=== PATIENT | male | born 1955 | race Caucasian/White ===

== ENCOUNTER 2019-03-25 05:58 | Day surgery (SDC) | payer MEDICARE, OTHER ==
[2019-03-25] MEDS ORDERED: Dextrose 5%-Lactated Ringers 1,000 ML IV SCH (07:00)
[2019-03-25] MEDS ORDERED: Glycopyrrolate 0.2 MG/ML 2 ML SDV IVPUSH ONE (07:00)
[2019-03-25] MEDS ORDERED: Propofol 200 MG/20 ML SDV ONE (07:26)
[2019-03-25] MEDS ORDERED: Midazolam 1 MG/ML 2 ML SDV ONE (07:26)
[2019-03-25] MEDS ORDERED: fentaNYL 100 MCG/2 ML SDV ONE (07:26)
[2019-03-25 09:15] VITALS: BP 135/82; PULSE 61
--- NOTE | 2019-03-29 00:08 | OR ---
DATE OF PROCEDURE: 03/25/2019 SURGEON: Stew Flores MD PREOPERATIVE DIAGNOSIS: Probable gastroesophageal reflux disease. POSTOPERATIVE DIAGNOSES: 1. Active gastroesophageal reflux disease associated with moderate-sized hiatal hernia. 2. Mild antral gastritis/duodenitis. PROCEDURES: Esophagogastroduodenoscopy with; 1. Biopsy of esophagogastric junction. 2. Biopsy of antrum for CLOtest. ANESTHESIA: IV sedation. INDICATION FOR PROCEDURE: A 63-year-old male presenting with progressively worsening gastroesophageal reflux disease. He has been on twice-a-day omeprazole. Continues to have worsening heartburn along with some regurgitation of bilious-type material and cough associated with that. Given these findings, the patient referred for upper endoscopy for diagnostic purposes. Potential risks including bleeding and perforation were discussed, and the patient wishes to proceed. DETAILS OF PROCEDURE: The patient was taken to the operating room and placed in a left lateral decubitus position. IV sedation was administered, after which the upper GI endoscope was passed orally through the length of the esophagus into the stomach with retroflexion view of the fundus, and thereafter through the pyloric channel and into the junction of the third and fourth portions of the duodenum. Findings included some mild redness and edema of the hypopharynx and larynx consistent with some ongoing reflux and regurgitation. The pyloric channel and proximal 2/3 of the esophagus were otherwise unremarkable. As one passed into the more distal esophagus, the patient noted to have 2 to 3 cm hiatal hernia with quite active-appearing gastroesophageal reflux disease. There was some upward extension of the gastroesophageal junction mucosal line with the columnar mucosa above the upper gastric folds suggestive of possible Page's esophagus. The mucosa in general in the EG junction was edematous and friable. There was no plaquing or stricturing or otherwise suggestive of neoplastic changes per se. Within the stomach, there were some patchy reddened areas in the antrum. These continued into the duodenal bulb, beyond which the duodenum normalized. Biopsies were then obtained from the antrum and sent for CLOtest for H pylori. Multiple biopsies were then obtained from the gastroesophageal junction, sent for histologic evaluation. Minimal bleeding from the biopsy sites was seen and the procedure then concluded. Discussion which begun preoperatively with the patient and family members continued postoperatively after the patient was awakened and conversant, and after discussion, they wished to proceed with a Mihir fundoplication. This will be scheduled for the week of 04/06. The patient does have 2 family members who have had the surgical antireflux procedure by myself with good results. Potential risks of the procedure were all reviewed with the patient and , and they wished to proceed with this. Stew Flores MD /[id number]
== END 2019-03-25 09:35 | disposition home or self-care (01) ==
LOC: JP.SDS 05:58
PROVIDERS: ATTEND Surgery
DX: K21.0 Gastro-esophageal reflux disease with esophagitis (principal); K44.9 Diaphragmatic hernia without obstruction or gangrene; K29.70 Gastritis, unspecified, without bleeding; K29.80 Duodenitis without bleeding; K22.8 Other specified diseases of esophagus; Z79.899 Other long term (current) drug therapy
CPT/HCPCS: 43239; 87081; J2250; J2704; J3010; J3490; J7042

== ENCOUNTER 2019-04-06 12:08 | Inpatient (IN) | payer MEDICARE, OTHER ==
[~2019-04-06 12:08] MED LIST: Dexamethasone 4 MG/ML SDV ONE; Glycopyrrolate 0.2 MG/ML 5 ML MDV ONE; Neostigmine Methylsulfate 1 MG/ML 5 ML Syringe ONE; Ondansetron 4 MG/2 ML SDV ONE; Propofol 200 MG/20 ML SDV ONE; Rocuronium 50 MG/5 ML Vial ONE; Succinylcholine 200 MG/10 ML MDV ONE; Sugammadex Sodium 200 MG/2 ML VIAL ONE; fentaNYL 250 MCG/5 ML SDV ONE
[2019-04-06] MEDS ORDERED: Ketamine 500 MG/5 ML MDV IV SCH (12:15)
[2019-04-06] MEDS ORDERED: Ketamine 50 MG in Sodium Chloride 0.9% 49.5 ML IV SCH (12:30)
[2019-04-06] MEDS ORDERED: Acetaminophen 500 MG Tab PO ONE (12:45)
[2019-04-06] MEDS ORDERED: Dextrose 5%-Lactated Ringers 1,000 ML IV SCH (13:30)
[2019-04-06] MEDS ORDERED: ceFAZolin 2 GM in Premix Bag 1 BAG IV ONE (14:00)
[2019-04-06] MEDS ORDERED: fentaNYL 250 MCG/5 ML SDV ONE (15:08)
[2019-04-06] MEDS ORDERED: Lactated Ringers 1,000 ML ONE (15:54)
[2019-04-06] MEDS ORDERED: Sugammadex Sodium 200 MG/2 ML VIAL ONE (16:34)
[2019-04-06] MEDS ORDERED: hydrOXYzine HCl 100 MG/2 ML SDV IM ONE (16:42)
[2019-04-06] MEDS ORDERED: fentaNYL 100 MCG/2 ML SDV IVPUSH ONE (16:43)
[2019-04-06] MEDS ORDERED: HYDROmorphone 0.5 MG/0.5 ML Syringe IVPUSH PRN (18:31)
[2019-04-06] MEDS ORDERED: HYDROmorphone 1 MG/ML Syringe IV PRN (18:32)
[2019-04-06] MEDS ORDERED: Ondansetron 4 MG/2 ML SDV IVPUSH PRN (18:36)
[2019-04-06] MEDS ORDERED: methylPREDNISolone Sodium Succinate 40 MG/1 ML SDV IVPUSH SCH (20:00)
[2019-04-06] MEDS: Dextrose 5%-Lactated Ringers 1,000 ML IV SCH (20:36)
[2019-04-06] MEDS: Metoclopramide 10 MG/2 ML SDV IVPUSH SCH (20:37)
[2019-04-06] MEDS: Pantoprazole 40 MG Vial IV SCH (20:38)
[2019-04-06] MEDS ORDERED: ceFAZolin 1 GM Vial ONE (21:37)
[2019-04-06] MEDS ORDERED: Sodium Chloride 0.9% 50 ML ONE (21:37)
[2019-04-06] MEDS: ceFAZolin 2 GM in Premix Bag 1 BAG IV SCH (22:32)
[2019-04-07] MEDS: Dextrose 5%-Lactated Ringers 1,000 ML IV SCH ×3 (00:39→21:44)
[2019-04-07] MEDS: Metoclopramide 10 MG/2 ML SDV IVPUSH SCH ×4 (01:53→20:48)
[2019-04-07] MEDS ORDERED: ceFAZolin 1 GM Vial ONE (05:21)
[2019-04-07] MEDS ORDERED: Sodium Chloride 0.9% 50 ML ONE (05:21)
[2019-04-07] MEDS: ceFAZolin 2 GM in Premix Bag 1 BAG IV SCH (05:46)
[2019-04-07] MEDS ORDERED: HYDROmorphone 2 MG Tab PO PRN (06:56)
[2019-04-07] MEDS ORDERED: Ondansetron 4 MG Tab.DIS PO PRN (06:56)
[2019-04-07] MEDS ORDERED: methylPREDNISolone Sodium Succinate 125 MG/2 ML SDV IVPUSH SCH (07:14)
[2019-04-07] MEDS ORDERED: ceFAZolin 2 GM in Sodium Chloride 0.9% 50 ML IV SCH ×2 (09:04→14:00)
[2019-04-07] MEDS: Aspirin 81 MG Tab.EC PO SCH (09:23)
[2019-04-07] MEDS: methylPREDNISolone Sodium Succinate 125 MG/2 ML SDV IVPUSH SCH ×2 (09:23→20:49)
--- NOTE | 2019-04-07 09:46 | PN ---
DATE OF SERVICE: 04/07/2019 SUBJECTIVE: Ricardo is postoperative day #1. He is alert and orientated. He states his pain is controlled. He has been up ambulating. Has no questions or concerns. OBJECTIVE: GENERAL: Ricardo is a 63-year-old male. He is alert and orientated. VITAL SIGNS: TPR; 96.7, 83, 18. Blood pressure 108/72. HEENT: Negative. NECK: Supple. HEART: Regular rate and rhythm. LUNGS: Clear. ABDOMEN: Dressing is dry and intact. Abdominal binder is on. EXTREMITIES: Without peripheral edema. ASSESSMENT: Laparoscopic Mihir fundoplication. PLAN: 1. Full liquid diet. 2. Dietary consult. 3. Decrease IV to 100 mL/hour. 4. Dilaudid 2 mg q.4 hours p.r.n. pain. 5. Discontinue IV Dilaudid. 6. Zofran ODT 4 mg every 4 hours p.r.n. nausea. 7. Dressing off, may shower. 8. We will evaluate p.r.n. or in a.m. Terri Bermudez PA-C /[id number]
--- NOTE | 2019-04-07 15:02 | OR ---
DATE OF PROCEDURE: 04/06/2019 SURGEON: Stew Flores MD PREOPERATIVE DIAGNOSIS: Gastroesophageal reflux disease, refractory to medical management. POSTOPERATIVE DIAGNOSIS: 1. Large paraesophageal diaphragmatic hernia associated with gastroesophageal reflux disease refractory to medical management. 2. Mediastinal lipoma. OPERATIVE PROCEDURES: Diagnostic laparoscopy with: 1. Repair of paraesophageal diaphragmatic hernia with mesh augmentation and associated Mihir fundoplication (89491). 2. Excision of mediastinal lipoma (47815). ANESTHESIA: General. INDICATION FOR PROCEDURE: This is a 63-year-old male presenting with progressively worsening gastroesophageal reflux disease, which at this point has become refractory to medical management. Upper endoscopy was performed a little over a week ago and was found to have a fairly large hiatal hernia and on microscopic examination was consistent with reflux without Page's esophagus. Plan is to proceed with a Mihir fundoplication. Potential risks of procedure including bleeding, infection, injury to the viscera in the area, problems with fundoplication such as dysphagia, gas-bloat syndrome, disorders of gastric emptying rate, as well as possibility of cardiopulmonary, septic, or hemorrhagic complications leading to were discussed, and lastly either short-term or long-term ineffectiveness of procedure involving persistent or recurrent reflux were likewise gone over, and the patient wishes to proceed. DETAILS OF PROCEDURE: The patient was taken to the operating room, and placed in a supine position. After general endotracheal anesthesia was induced, he was converted to a lithotomy position and the abdomen prepped and draped. At 15 cm inferior and 5 cm left of xiphoid process, a transverse incision was made and peritoneal cavity entered under direct vision with an Optiview trocar, inflated to 15 mmHg pressure with CO2. Laparoscope was then reinserted, no underlying trocar insertion site injuries were seen. Following this, bilateral subcostal transverse abdominis plane blocks were placed and 4 additional trocars were placed across the upper and mid abdomen. Upon evaluation of the liver, the patient was noted to have a fairly large hiatal hernia. This had a major paraesophageal component to it with prolapse of some omentum and perigastric fat, along with some of the gastric fundus in a plane anterior to the course of the esophagus. The hernia was then reduced, and the peritoneum overlying it was incised and reflected downward. The esophagus itself was quite thickened related to chronic inflammation. It eventually was dissected free from the left and right crura and the retroesophageal dissection then completed as well. Further dissection resulted in a very nice intra-abdominal esophageal length of around 5 cm. During the course of this dissection, a mediastinal lipoma was encountered, and this was excised to facilitate more adequate crural repair. The crural repair was then accomplished with a series of 0 Ethibond sutures, reinforced with PTFE pledgets. The degree of muscular splaying prior to the closure was such that we felt augmentation of the crural repair with Phasix mesh would be appropriate. This was cut in a horseshoe type configuration and laid across the crural repair and then along the side of the esophagus and affixed it in that position with some titanium tacking screws. The omentum was then divided away from the mid greater curvature with Harmonic Scalpel. This dissection then continued proximally to include the short gastrics, including the highest and posterior short gastric vessels. This resulted in a satisfactory mobile fundus. This was retrieved through the retroesophageal window, and a guidewire was then passed orally through the esophagus and into the stomach per Anesthesia. Over this, a 54-[place] Savary dilator was positioned. A 3-stitch 2 cm fundoplication was accomplished with 0 Ethibond sutures, reinforced with PTFE pledgets. Each of the sutures included bites of the underlying esophagus. Two additional sutures were then taken between the fundoplication and the overlying diaphragm with the same stitch-pledget combination to minimize chances of the fundoplication slipping downward onto the stomach. At that point, the dilator and wire were removed and the fundoplication found to be satisfactorily floppy. No significant problems were noted. At this point, the trocars removed and peritoneal cavity deflated. Incisions were closed with 4-0 Vicryl stitch. The patient was taken to the recovery room in satisfactory condition. There were no evident complications. Stew Flores MD /[id number]
[2019-04-07] MEDS: Pantoprazole 40 MG Vial IV SCH (20:50)
[2019-04-08] MEDS: Metoclopramide 10 MG/2 ML SDV IVPUSH SCH ×2 (02:01→08:42)
[2019-04-08 03:12] VITALS: PULSE 72
[2019-04-08 07:10] VITALS: BP 143/83
[2019-04-08] MEDS: Aspirin 81 MG Tab.EC PO SCH (08:39)
[2019-04-08] MEDS: methylPREDNISolone Sodium Succinate 125 MG/2 ML SDV IVPUSH SCH (08:42)
--- NOTE | 2019-04-08 10:09 | DISCH ---
ADMISSION DIAGNOSIS: 1. Gastroesophageal reflux disease refractory to medical management. 2. Coronary artery disease. 3. Cervical spondyloarthritis. 4. BPH. DISCHARGE DIAGNOSES: Repair of paraesophageal hernia with mesh with Mihir fundoplication and excision of mediastinal lipoma for a large paraesophageal diaphragmatic hernia and mediastinal lipoma with gastroesophageal reflux disease refractory to medical management. Date of surgery: 04/06/2019. Surgeon: Stew Flores MD. HISTORY: Ricardo Hudson is a 63-year-old male who had gastroesophageal reflux disease refractory to medical management. After preoperative evaluation and discussion of possible risks and possible complications, he wished to proceed with surgical procedure. HOSPITAL COURSE: Ricardo had his surgery on 04/06/2019. He had no operative complications. He did have more swelling than what is normally expected postoperatively, so was given Solu- Medrol 80 mg IV every 12 hours. He was started on a clear liquid diet, tolerated that well. On postoperative day #1, he was advanced to a full liquid diet. Vital signs were stable. Oral intake adequate. Activity good. Pain was managed on Tylenol. Ricardo did receive dietary instruction and he was able to be discharged to home on postoperative day #2. PHYSICAL EXAMINATION: GENERAL: Ricardo Hudson is a 63-year-old male. VITAL SIGNS: Height is 5 feet 8.11 inches, weight is 229 pounds, BMI 34.8. TPR is 96.4, 72, 20, blood pressure 143/83. HEENT: Negative. NECK: Supple. HEART: Regular rate and rhythm. LUNGS: Clear. ABDOMEN: Incisions healing well. Sutures intact. Abdominal binder is on. EXTREMITIES: Without peripheral edema. DISPOSITION: Discharged to home. CONDITION: Stable and improving. FOLLOWUP APPOINTMENT: Stew Flores MD, at [facility] on 04/14/2019 at 9 a.m. HOME MEDICATIONS: He is on Medrol Dosepak 4 mg, take as directed. He is to resume home medications of aspirin 81 mg daily, Prilosec 20 mg oral daily. DISCHARGE INSTRUCTIONS: Diet after discharge: Full liquid diet for 30 days. Drink 8 to 10 glasses of water a day. Other activity: No lifting greater than 10 pounds for 2 weeks. Walk at least 6 times daily, distance and time as tolerated. Driving: Do not drive for 1 week. Shower/bathing: May shower. Notify provider if any fever, increased pain, nausea, or vomiting. Wound incision care; keep site clean and dry. Wear abdominal binder for 2 weeks and then as tolerated. Use incentive spirometer 10 times every hour while awake for 1 week.
[2019-04-08] MEDS ORDERED: Pantoprazole 40 MG Tab.CR PO SCH (21:00)
== END 2019-04-08 09:20 | disposition home or self-care (01) | DRG 328 ==
LOC: JP.MS 12:08 → JP.SDS 12:08 → EDSTATUS 17:00 → JP.MS 17:37
PROVIDERS: ADMIT Surgery; ATTEND Surgery
PROC: 0BUT4JZ Supplement Diaphragm with Synthetic Substitute, Percutaneous Endoscopic Approach (ICD-10-PCS; principal; 2019-04-06)
PROC: 0DV44ZZ Restriction of Esophagogastric Junction, Percutaneous Endoscopic Approach (ICD-10-PCS; 2019-04-06)
PROC: 0WBC4ZZ Excision of Mediastinum, Percutaneous Endoscopic Approach (ICD-10-PCS; 2019-04-06)
DX: K21.9 Gastro-esophageal reflux disease without esophagitis (principal); K44.9 Diaphragmatic hernia without obstruction or gangrene; D17.4 Benign lipomatous neoplasm of intrathoracic organs; N40.0 Benign prostatic hyperplasia without lower urinary tract symptoms; I25.10 Atherosclerotic heart disease of native coronary artery without angina pectoris; N42.31 Prostatic intraepithelial neoplasia; M47.812 Spondylosis without myelopathy or radiculopathy, cervical region; Z79.52 Long term (current) use of systemic steroids
CPT/HCPCS: 36415; 80048; 83735; 84100; 85027; 88304; A9270-GY; C1713; C1781; C9113; J0171; J0330; J0690; J1100; J2405; J2704; J2710; J2765; J2795; J2920; J2930; J3010; J3410; J3490; J7042; J7050; J7120

== ENCOUNTER 2020-01-31 06:16 | Day surgery (SDC) | payer MEDICARE, OTHER ==
[2020-01-31] MEDS ORDERED: Dextrose 5%-Lactated Ringers 1,000 ML IV SCH (07:00)
[2020-01-31] MEDS ORDERED: fentaNYL 100 MCG/2 ML SDV ONE (07:04)
[2020-01-31] MEDS ORDERED: Propofol 200 MG/20 ML SDV ONE (07:04)
[2020-01-31] MEDS ORDERED: Midazolam 1 MG/ML 2 ML SDV ONE (07:04)
[2020-01-31] MEDS ORDERED: Pantoprazole 40 MG Vial IVPUSH ONE (07:30)
[2020-01-31 08:44] VITALS: PULSE 69
[2020-01-31 09:23] VITALS: BP 147/73
--- NOTE | 2020-02-06 11:49 | OR ---
DATE OF PROCEDURE: 01/31/2020 SURGEON: Stew Flores MD PREOPERATIVE DIAGNOSES: Dysphagia and epigastric pain, status post Mihir fundoplication. POSTOPERATIVE DIAGNOSES: 1. Dysphagia and epigastric pain, status post Mihir fundoplication. 2. Intact Mihir fundoplication with no gross inflammation at esophagogastric junction. 3. There is mild antral gastritis and duodenitis. OPERATIVE PROCEDURE: Esophagogastroduodenoscopy with antral biopsies for CLOtest. ANESTHESIA: IV sedation. INDICATIONS FOR PROCEDURE: This is a 64-year-old status post previous Mihir fundoplication, presenting with some dysphagia and epigastric discomfort, status post the fundoplication. He presently has not been on any antisecretory medications and does complain of some postprandial diarrhea, which I suspect is related to the dumping syndrome. Plan is to proceed with upper GI endoscopy with biopsies and/or dilation as indicated. Potential risks including bleeding and perforation were discussed, and the patient wishes to proceed. DETAILS OF PROCEDURE: The patient was taken to the operating room, placed in a left lateral decubitus position. IV sedation was administered, after which the upper GI endoscope was passed orally through the length of the esophagus into the stomach with retroflexion view of the fundus, and thereafter through the pyloric channel and into the proximal duodenum. Findings included normal hypopharynx, larynx, upper esophageal sphincter, esophageal body. No esophageal body dilation was indicated. The patient had intact Mihir effect at the area of the esophagogastric junction and no significant inflammation grossly seen at that level. Within the stomach, there was no retained bile or food. There was some patchy redness in the antrum and proximal duodenum, likely accounting for most of the patient's symptoms. Remainder of the duodenum was otherwise unremarkable. At this point, biopsies were taken from the antrum and sent for CLOtest for H pylori. Minimal bleeding from the biopsy sites was seen and the procedure was then concluded. We will begin the patient on Protonix 40 mg IV in the recovery room and then 40 mg orally for treatment of the gastritis and duodenitis. Also have Dietary see the patient regarding dumping syndrome following fundoplication. I will see the patient back in 6 weeks for recheck. Stew Flores MD /[id number]
== END 2020-01-31 09:15 | disposition home or self-care (01) ==
LOC: JP.SDS 06:16
PROVIDERS: ATTEND Surgery
DX: K29.90 Gastroduodenitis, unspecified, without bleeding (principal); K21.9 Gastro-esophageal reflux disease without esophagitis; K31.89 Other diseases of stomach and duodenum
CPT/HCPCS: 43239; 87081; C9113; J2250; J2704; J3010; J7121

== ENCOUNTER 2022-02-16 12:32 | Emergency (ER) | payer MEDICARE, OTHER | END 2022-02-16 12:50 | disposition left against medical advice (07) | LOC: JP.ED 12:32 | DX: Z53.21 Procedure and treatment not carried out due to patient leaving prior to being seen by health care provider (principal) ==